=== PATIENT | female | born 1955 | race Caucasian/White ===

== ENCOUNTER 2021-03-01 22:49 | Emergency (ER) | payer OTHER, SELFPAY ==
[2021-03-01 23:18] VITALS: BP 148/90; PULSE 81; RESP 17; TEMP 37; O2SAT 97; BMI 40.7
--- NOTE | 2021-03-01 23:28 | ED.ANIMALBIT ---
HPI - Animal Bite General Chief Complaint: Animal Bite Stated Complaint: racoon bite Time Seen by Provider: 03/01/21 23:15 Source: patient Mode of arrival: ambulatory Limitations: no limitations History of Present Illness HPI narrative: Patient comes to the emergency room complaining of being bitten versus scratched by a raccoon. Patient states she was in her porch, watching a movie at night, then she felt a scratch in her right ankle. When she looked down, there was a raccoon. The raccoon did not seem scared, patient states that she is not sure if the raccoon bit her or scratched her. Then the raccoon ran off into the [place] Related Data Previous Rx's Medication Instructions Recorded amoxicillin 500 mg-potassium 1 tab PO BID #14 tab 03/01/21 clavulanate 125 mg tablet (Augmentin) Allergies Allergy/AdvReac Type Severity Reaction Status Date / Time aspirin [ASA] AdvReac Nasal Verified 03/01/21 23:26 congestion codeine AdvReac Vomiting Verified 03/01/21 23:26 Review of Systems Review of Systems: Constitutional : No Weight loss, No Fever, No Chills, No Night Sweats, No Fatigue, No Malaise ENT/Mouth : No Hearing loss, No Ear Pain, No Nasal Congestion, No Sinus Pain, No Hoarseness, No sore throat, No Rhinorrhea, No Swallowing Difficulty Eyes: No Eye Pain, No Swelling, No Redness, No Foreign Body, No Discharge, No Vision Changes Cardiovascular : No Chest Pain, No SOB, No Dyspnea on Exertion, No Orthopnea, No Edema, No Palpitations Respiratory : No Cough, No Sputum, No Wheezing, No Smoke Exposure, No Dyspnea Gastrointestinal : No Nausea, No Vomiting, No Diarrhea, No Constipation, No abdominal Pain, No Hematochezia, No Melena Genitourinary : no irregular bleeding, No Dysuria, No Urinary Frequency, No Hematuria, No Urinary Incontinence, No Urgency, No Flank Pain, No Urinary Flow Changes, No Hesitancy Musculoskeletal : No joint pain, No Myalgias, No Joint Swelling Skin : Scratch versus bite madonna to the right ankle Neuro : No Weakness, No Numbness, No Paresthesias, No Loss of Consciousness, No Dizziness, No Headache Psych : No Anxiety/Panic, No Depression, No SI/HI/AH/VH, No Social Issues, Heme/Lymph: No Bruising, No Bleeding,No Lymphadenopathy Endocrine : No Polyuria, No Polydipsia, No Temperature Intolerance PMFSH Past Medical History Medical History No known health problems Surgical History History of tonsillectomy Physical Exam Vital Signs: Vital Signs: Last Vital Signs Temp 98.6 F 03/01/21 23:18 Pulse 81 03/01/21 23:18 Resp 17 03/01/21 23:18 BP 148/90 H 03/01/21 23:18 Pulse Ox 97 03/01/21 23:18 Body Mass Index 40.7 Const: Other: Appearance: Alert. Oriented X3. No acute distress. Eyes: Pupils equal, round and reactive to light. ENT: Pharynx normal. Neck: Normal inspection. Neck supple. No lymph nodes noted. No crepitus CVS: Normal heart rate and rhythm. Pulses normal. Normal S1 and S2 Respiratory: No respiratory distress. Breath sounds normal. No Wheezing. No rales Abdomen: Soft and nontender. No rigidity. No distention. good BS x4 Skin: Skin warm and dry. Right ankle has a small 3 mm injury, broken skin, scratch versus bite, no surrounding erythema, bleeding controlled, no drainage Extremities: No lower extremity edema. No lower extremity edema. No Lacerations. No Rash Neuro: Oriented X 3. No motor deficit. No sensory deficit. Moving all extermities. No slurred speech. Course Course Course Narrative: I discussed with the patient that raccoon's do carry rabies. It is concerning that the raccoon scratch/bit the patient without provocation. Patient was provided with rabies immunoglobulin, res vaccine, Tdap booster and Augmentin. Discharge Plan Discharge Clinical Impression: Bite by animal Patient Disposition: Home, Self-Care Instructions: Animal Bite (ED) Additional Instructions: It is very important that you follow-up with your appointments for the rabies vaccine. Please follow-up with your primary care physician tomorrow. If you have any worsening or new symptoms, please return to the emergency room or call 911 Prescriptions: New amoxicillin-pot clavulanate [Augmentin] 500-125 mg tablet 1 tab PO BID Qty: 14 RF: 0
[2021-03-02] MEDS: Amoxicillin/Potassium Clav 875 MG TABLET PO (00:17)
[2021-03-02] MEDS: Rabies Vaccine (PCEC)/PF 1 ML VIAL IM (00:18)
[2021-03-02] MEDS: Rabies Immune Globulin/PF 300 UNIT/ML VIAL 2020 UNIT IM (00:18)
[2021-03-02] MEDS: Diphth,Pertus(ACell),Tet Adult 0.5 ML SYRINGE IM (00:19)
[2021-03-02 00:37] VITALS: BP 134/91; PULSE 85; RESP 20; TEMP 36.6; O2SAT 97
== END 2021-03-02 01:13 | disposition home or self-care (01) ==
LOC: HO.ED 23:43
PROVIDERS: Emergency Provider Emergency Medicine
DX: S91.051A Open bite, right ankle, initial encounter (principal); W55.51XA Bitten by raccoon, initial encounter; Y93.89 Activity, other specified; Y92.018 Other place in single-family (private) house as the place of occurrence of the external cause; Y99.9 Unspecified external cause status; Z20.3 Contact with and (suspected) exposure to rabies
CPT/HCPCS: 90375; 90471; 90675; 90715; 96372; 99284

== ENCOUNTER 2021-03-05 09:49 | Outpatient (REF) | payer OTHER, SELFPAY | END 2021-03-05 09:50 | disposition home or self-care (01) | LOC: HO.MDS 09:49 | PROVIDERS: Visit Provider Emergency Medicine | DX: Z29.14 Encounter for prophylactic rabies immune globulin (principal); S90.5 Other superficial injuries of ankle; W55.51XD Bitten by raccoon, subsequent encounter; Z20.3 Contact with and (suspected) exposure to rabies | CPT/HCPCS: 90471; 90675 ==

== ENCOUNTER 2021-03-09 09:57 | Outpatient (REF) | payer OTHER, SELFPAY | END 2021-03-09 09:58 | disposition home or self-care (01) | LOC: HO.MDS 09:57 | PROVIDERS: Visit Provider Emergency Medicine | DX: Z29.14 Encounter for prophylactic rabies immune globulin (principal); S91.051D Open bite, right ankle, subsequent encounter; W55.51XD Bitten by raccoon, subsequent encounter; Z20.3 Contact with and (suspected) exposure to rabies | CPT/HCPCS: 90471; 90675 ==

== ENCOUNTER 2021-03-16 09:52 | Outpatient (REF) | payer OTHER, SELFPAY | END 2021-03-16 09:53 | disposition home or self-care (01) | LOC: HO.MDS 09:52 | PROVIDERS: Visit Provider Emergency Medicine | DX: Z29.14 Encounter for prophylactic rabies immune globulin (principal); S91.051D Open bite, right ankle, subsequent encounter; W55.51XD Bitten by raccoon, subsequent encounter; Z20.3 Contact with and (suspected) exposure to rabies | CPT/HCPCS: 90675 ==